=== PATIENT | male | born 1955 | race Caucasian/White ===

== ENCOUNTER 2019-07-27 22:48 | Emergency (ER) | payer OTHER ==
[~2019-07-27] VITALS: Ht 195.6 cm; Wt 127.9 kg
[2019-07-27 23:00] VITALS: BP_SYST 176
[2019-07-27] MEDS ORDERED: ASPIRIN 81 MG TAB.CHEW PO ONE (23:45)
--- NOTE | 2019-07-27 23:52 | NUR ---
Placed in room 07 . Placed on hall monitor, blood pressure machine and pulse oximeter. To gown for exam. Side rails up.
[2019-07-28 00:06] LABS: BASOPHILS # (AUTO) 0.1 K/uL (0.0-0.2); BASOPHILS % (AUTO) 0.8 % (0.0-2.0); EOSINOPHILS % (AUTO) 0.6 % (0.0-4.0); HEMATOCRIT 46.1 % (36-54); HEMOGLOBIN 15.6 g/dL (14.0-18.0); LYMPHOCYTES # (AUTO) 1.8 K/uL (1.0-5.5); LYMPHOCYTES % (AUTO) 22.9 % (20.5-51.5); MEAN CORPUSCULAR HEMOGLOBIN 31 pg (27-31); MEAN CORPUSCULAR HGB CONC 34 % (32-36); MEAN CORPUSCULAR VOLUME 90 fL (79.0-98.0); MONOCYTES # (AUTO) 0.5 K/uL (0.0-1.0); MONOCYTES % (AUTO) 6.3 % (1.7-9.3); NEUTROPHILS # (AUTO) 5.5 K/uL (1.8-7.7); NEUTROPHILS % (AUTO) 69.4 % (40.0-70.0); PLATELET COUNT (AUTO) 152 K/uL (130-430); RED BLOOD CELL COUNT(AUTO) 5.11 MIL/uL (4.2-6.2); WHITE BLOOD COUNT (AUTO) 7.9 K/uL (4.8-10.8)
--- NOTE | 2019-07-28 00:13 | NUR ---
ER at bedside examining patient.
[2019-07-28 00:18] LABS: CALCIUM 9.8 mg/dL (8.4-11.0); CREATININE 0.87 mg/dL (0.55-1.30); POTASSIUM 3.6 mmol/L (3.5-5.1)
[2019-07-28 00:29] LABS: ALBUMIN 3.7 g/dL (3.4-4.8); TOTAL BILIRUBIN 0.3 mg/dL (0.0-1.0)
--- NOTE | 2019-07-28 01:12 | NUR ---
Patient AAO x 4 BIB ACLS with 8/10 nonradiating CP on arrival s/p laying cement at around 1600. Denies shortness of breath, dizziness, and nausea. Patient was given 325 mg ASA and 0.5 mg NTG by EMS prior to arrival. Patient reports history of HTN, vtach, SVT, chronic PVCs, and skin ca removal from back. Current pain level is 3/10. Even chest rise and fall with respirations. Will continue to monitor.
[2019-07-28] MEDS ORDERED: INSULIN REGULAR, HUMAN 10 UNITS/0.1 ML INJ IVP ONE (01:30)
[2019-07-28] MEDS ORDERED: ENOXAPARIN SODIUM 100 MG/ML SYRINGE SUBCUT ONE (02:00)
--- NOTE | 2019-07-28 02:00 | NUR ---
#20 gauge angiocatheter placed to R hand. Use of asceptic technique. Tegaderm placed over site. Blood return noted. Flushed with 10 mL of normal saline. No evidence of infiltration noted. Patient tolerated well.
[2019-07-28] MEDS ORDERED: SERT50TA PO (02:01)
[2019-07-28] MEDS ORDERED: metoprolol PO (02:01)
--- NOTE | 2019-07-28 02:26 | NUR ---
Accucheck 258
--- NOTE | 2019-07-28 03:35 | NUR ---
Care endorsed to Xochitl EDUARDO
--- NOTE | 2019-07-28 04:00 | NUR ---
Report received from ALESAH Carrillo. All care endorsed.
--- NOTE | 2019-07-28 04:08 | NUR ---
Pt in bed resting with no complaints. Vital signs stable.
--- NOTE | 2019-07-28 06:03 | NUR ---
Patient resting quietly. No acute distress noted. Vital signs within normal range.
--- NOTE | 2019-07-28 06:25 | NUR ---
Lab at bedside.
--- NOTE | 2019-07-28 06:45 | NUR ---
CONSULT CALLED: CONSULT FOR DR MCLEAN SPOKE WITH YARA REASON FOR CONSULT: [place], [place]
--- NOTE | 2019-07-28 07:15 | NUR ---
Report given to ALESHA Donaldson to endorse all care.
--- NOTE | 2019-07-28 07:40 | NUR ---
PT RESTING IN BED AT THIS TIME NO COMPLAINTS
[2019-07-28] MEDS: INSULIN LISPRO SLIDING SCALE 100 UNITS/ML VIAL (humaLOG) SUBCUT PRN ×3 (07:50→16:59)
[2019-07-28] MEDS ORDERED: INSULIN Lispro 100 UNITS/ML VIAL (humaLOG) ONE ×2 (07:57→13:37)
--- NOTE | 2019-07-28 08:25 | NUR ---
PT DESCRIBES CHEST PRESSURE NO PAIN ASSOCIATED WITH CHEST. EKG PERFORMED AND GIVEN TO DOCTOR.
[2019-07-28] MEDS ORDERED: ENOXAPARIN SODIUM 120 MG/0.8 ML SYRINGE SUBCUT ONE (08:45)
[2019-07-28] MEDS ORDERED: ASPIRIN 81 MG TAB.CHEW PO SCH (09:00)
--- NOTE | 2019-07-28 10:30 | NUR ---
Pt sleeping in bed at this time. at bedside.
[2019-07-28] MEDS ORDERED: ENOXAPARIN SODIUM 120 MG/0.8 ML SYRINGE ONE (11:34)
--- NOTE | 2019-07-28 12:30 | NUR ---
No complaints at this time, pt in torrey, no distress noted.
[2019-07-28] MEDS ORDERED: INSULIN GLARGINE 100 UNITS/ML 10 ML VIAL SUBCUT ONE (13:45)
[2019-07-28] MEDS ORDERED: ACETAMINOPHEN 325 MG TABLET PO PRN (13:45)
--- NOTE | 2019-07-28 14:20 | NUR ---
PT RESTING IN BED FAMILY AT BEDSIDE
--- NOTE | 2019-07-28 15:00 | NUR ---
PT AND IN ROOM NO COMPLAINTS AT THIS TIME.
--- NOTE | 2019-07-28 15:50 | NUR ---
REPORT GIVEN TO PETER FROM [facility] AT THIS TIME. PT EXPECTED TO GO TO FACILITY SOON.
--- NOTE | 2019-07-28 17:45 | NUR ---
PT RESTING, ON PERSONAL INJURY ATTORNEY, NO DISTRESS AT THIS TIME, AT BEDSIDE. PT COMPLIANT WITH CARE.
[2019-07-28 17:46] LABS: PROTHROMBIN TIME 9.7 SECS (9.5-12.5)
--- NOTE | 2019-07-28 18:22 | NUR ---
Pt resting in ED bed. No distress at this time.
--- NOTE | 2019-07-28 19:45 | NUR ---
Pt states that he feels no pain at this time
--- NOTE | 2019-07-28 20:40 | NUR ---
[facility] ambulance called with updated eta of 30 min
[2019-07-28 21:04] VITALS: BP_SYST 151
--- NOTE | 2019-07-28 21:04 | NUR ---
Patient to be transferred to [facility]. Is being transferred due to higher level of care. Receiving facility has accepting physician and available space. ER physician has signed transfer form. Patient or responsible libertarian has agreed to transfer and signed form. Patient belongings inventoried and will be sent with patient. Copy of nursing notes, lab reports, EKG, Physicians Orders and X-rays to be sent with patient. Report called to [place] at receiving facility. Receiving physician is . [facility] ambulance service on scene for patient transport. EMT Jesús given report
--- NOTE | 2019-07-28 22:07 | NUR ---
Yanelis from [facility] called requesting additional information. returned call, . Gave full report.
[2019-07-29] MEDS ORDERED: INSULIN GLARGINE 100 UNITS/ML 10 ML VIAL SUBCUT SCH (09:00)
[2019-07-29] MEDS ORDERED: FAMOTIDINE 20 MG TABLET PO SCH (09:00)
== END 2019-07-28 22:07 | disposition other institution (70) ==
LOC: SED 22:48 → UNDOADMIN 07-28 02:02 → STU 07-28 02:02 → SED 07-28 22:07
DX: I21.4 Non-ST elevation (NSTEMI) myocardial infarction (principal); I10 Essential (primary) hypertension; Z86.73 Personal history of transient ischemic attack (TIA), and cerebral infarction without residual deficits
CPT/HCPCS: 36415; 71045; 80053; 82550; 82947; 82962; 84484; 85025; 85610; 85730; 87081; 96372; 96374; 99291; J1650 ×2; J1815; 99285